=== PATIENT | male | born 1965 | race Caucasian/White ===

== ENCOUNTER 2024-05-28 12:34 | Emergency (ER) | payer OTHER, SELFPAY ==
[2024-05-28 12:38] VITALS: BP 130/107
[2024-05-28 13:45] VITALS: BMI 21.4
[2024-05-28 13:47] VITALS: BP 114/79
[2024-05-28 14:21] LABS: Hematocrit 37.5 % (39.0-52.0); Hemoglobin 13.4 g/dL (13.0-18.0); Mean Corp Hgb Conc. 35.7 g/dL (33.0-37.0); Mean Corpuscular Hgb 32.5 pg (27.0-31.0); Mean Platelet Volume 9.8 fL (7.4-10.4); Platelet Count 185 10^3/uL (130-400); Red Blood Cell Count 4.12 10^6/uL (4.70-6.10); Red Cell Dist. Width 13.9 % (11.5-14.5); White Blood Cell Count 6.4 10^3/uL (4.8-10.8)
[2024-05-28 14:28] LABS: Urine Albumin Trace (Neg - Trace); Urine Bilirubin 1+ (Negative); Urine Character Clear (Clear); Urine Color Yellow; Urine Glucose Negative (Negative); Urine Ketone Negative (Negative); Urine Leukocyte Trace (Negative); Urine Nitrite Negative (Negative); Urine Occult Blood Negative (Negative); Urine Urobilinogen 2+ (Neg - 1+)
[2024-05-28 14:30] LABS: ALT (SGPT) 35 U/L (0-50); AST (SGOT) 39 U/L (17-59); Albumin 3.9 g/dl (3.5-5.0); Alkaline Phosphatase 58 U/L (38-126); Blood Urea Nitrogen 19 mg/dl (9-20); Calcium 8.8 mg/dl (8.4-10.2); Carbon Dioxide 25 mmol/L (22-30); Chloride 100 mmol/L (98-107); Estimated Creatinine Clearance 81 ml/min; Glucose 126 mg/dl (70-99); Potassium 4.4 mmol/L (3.5-5.1); Sodium 135 mmol/L (135-145); Total Bilirubin 0.4 mg/dl (0.2-1.3); Total Protein 6.6 g/dl (6.3-8.2); eGFR > 60.00
[2024-05-28 14:32] LABS: COVID-19 Antigen Negative (Negative)
[2024-05-28] MEDS: NSS 1000 IV (14:39)
--- NOTE | 2024-05-28 15:34 | ED.GENMED ---
History of Present Illness
General
Chief Complaint: Extremity Pain (non-traumatic)
Time Seen by Provider: 05/28/24 13:14
History of Present Illness
History of Present Illness:
58-year-old male presents to the emergency department for evaluation of fatigue, trouble sleeping, generalized myalgias as well as right lower extremity cramping for the past 1 to 2 weeks. States on the day of onset of symptoms he had several bouts
of vomiting but has not vomited since. Denies any exertional claudication to the right lower extremity. 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
Denies any paresthesias to the right leg. No recent fevers or chills. Denies chest pain or trouble breathing
Past History
Past History
ED Past Medical History: Other (Past history of alcoholism and drug abuse according to previous records.) and Other (Blood clot in right leg)
ED Past Surgical History: Orthopedic and Other (Vascular surgery right leg)
Social History
Tobacco: Smoker
Alcohol: Former
Drug: None
Personal: Single
Living: with family
Employment: Employed
Review of Systems
Review of Systems
All Other Systems: ROS reviewed and negative except as documented in HPI and ROS
Phy Exam
Physical Exam
Physical Exam:
GEN: Well appearing, NAD, WDWN
Eyes: PERRLA, EOMs intact, no scleral icterus
HENT: NCAT, oral mucosa moist, no JVD, no cervical adenopathy.
Lungs: CTAB, no wheezes, rales, rhonchi, normal chest wall excursion
Cardiac: RRR, no M/R/G, no peripheral edema. Radial pulses 2+ bilat
Abdomen: S, NT, ND, NABS, no masses or hepatosplenomegaly
Neuro: AO x 3
MSK: No gross deformity or ecchymosis. No bilateral lower extremity edema. Dorsalis pedis and posterior tibialis pulses are 2+ and symmetric bilaterally, no tenderness to palpation of the right lower extremity
Skin: No rashes, petechiae. Normal color, no pallor or jaundice.
Psych: Calm, cooperative, proper hygiene
Course
Orders/Labs/Results
Orders:
Orders
05/28/24 13:59
Electrocardiogram (*1) Urgent
Reason for Study: QTc Monitoring
EKG- Treatment ONCE
05/28/24 14:00
COVID-19 Antigen Urgent
Source: Nasal Swab
Complete Blood Count/With Diff Urgent
Comprehensive Metabolic Panel Urgent
05/28/24 14:13
Urinalysis Reflex To Culture Urgent
Date Specimen was Collected: 05/28/24
Time Specimen was Collected: 14:12
Urine Microscopic Reflex Cult Urgent
05/28/24 14:36
0.9% Sodium Chloride 1000 ml [Nss] 1,000 ml IV BOLUS
Abnormal Lab Results
05/28/24 05/28/24
14:00 14:13
RBC 4.12 L 10^6/uL
(4.70-6.10)
Hct 37.5 L %
(39.0-52.0)
MCH 32.5 H pg
(27.0-31.0)
Glucose 126 H mg/dl
(70-99)
Urine Bilirubin 1+ A
(Negative)
Urine Urobilinogen 2+ A
(Neg - 1+)
Leukocyte Esterase Rfl Trace A
(Negative)
Urine RBC 3-6 A /HPF
(0-2)
05/28/24 14:00
05/28/24 14:00
Vital Signs
Initial and Last Documented VS:
Initial Vital Signs
Temp Pulse Resp BP Pulse Ox
98.0 F 116 18 130/107 95
05/28/24 12:38 05/28/24 12:38 05/28/24 12:38 05/28/24 12:38 05/28/24 12:38
Last Documented Vital Signs
Temp Pulse Resp BP Pulse Ox
98.0 F 91 17 121/82 97
05/28/24 12:38 05/28/24 15:49 05/28/24 15:49 05/28/24 15:49 05/28/24 15:15
MDM/Problems Addressed
MDM/Problems Addressed:
Because the patient's symptoms is not clear, suspect viral etiology given the initial onset of vomiting and subsequent diffuse myalgias. He does complain of right lower extremity discomfort however this is not clearly an exertional claudication
type symptoms and he has bounding DP and PT pulses on the right. No sign of limb ischemia at this time. Treated with IV fluids with improvement in symptoms, recommend primary care follow-up if symptoms continue
*Critical Care Note
Total Time (30-74mins, 75-104mins- exclusive of procedures): Not Applicable
ED Attending Note
-
Portions of this chart may have been created with voice recognition software.� Occasional wrong word or��sound alike� substitutions may have occurred due to the inherent limitations of voice recognition software.
Discharge Plan
Departure
Patient Disposition: Home (Routine Discharge)
Date of Disposition: 05/28/24
Time of Disposition: 15:34
Patient with high blood pressure during this ER visit?: No
Discharge Problem:
Myalgia
Instructions: Muscle and Bone Pain (DC)
Prescriptions:
No Action
celecoxib 200 MG capsule
200 mg PO DAILY
clopidogrel 75 MG tablet
75 mg PO DAILY
escitalopram oxalate 20 MG tablet
20 mg PO DAILY
cyclobenzaprine 10 MG tablet
5 mg PO BIDPRN PRN (Reason: muscle spasm)
oxycodone 5 MG tablet
5 mg PO Q4HPRN PRN (Reason: moderate pain) Qty: 10 0RF
acetaminophen 325 MG tablet
650 mg PO Q4HPRN PRN (Reason: mild pain or temp >/= 100.4F) 0RF
atorvastatin 10 MG tablet
10 mg PO QPM Qty: 30 1RF
cyclobenzaprine 10 MG tablet
5 mg PO TID PRN (Reason: spasm) Qty: 12 0RF
prednisone 10 MG tablet
10 mg PO .TAPER Qty: 30 0RF
Rx Instructions:
Take 40mg daily x3days, 30mg daily x3days,
20mg daily x3days, 10mg daily x3days.
tramadol 50 MG tablet
50 mg PO Q6HPRN PRN (Reason: pain) Qty: 12 0RF
Referrals:
Chadwick Villarreal MD [Family Provider] -
Interventions
Interventions:
*Risk Screen - Suicide Last Done: 05/28/24 12:38
*General Assessment Last Done: 05/28/24 12:38
ED- Fall Risk Assessment Last Done: 05/28/24 13:47
*ED COVID-19 Vaccine History Last Done: 05/28/24 12:38
*Nursing Disposition Last Done: 05/28/24 15:45
ED-Skin Assessment Last Done: 05/28/24 13:47
ED-Peripheral Vascular Assessment Last Done: 05/28/24 13:47
ED-Musculoskeletal Assessment Last Done: 05/28/24 13:47
Discharge Date and Time
Discharge Date/Time: 05/28/24 15:45
Print Language: CHINESE
[2024-05-28 15:49] VITALS: BP 121/82
[2024-05-28 16:35] LABS: % Basophils 0.3 % (0-2); % Eosinophils 1.9 % (0-6); % Immature Granulocytes 0.5 % (0-0.5); % Lymphocytes 29.8 % (20.5-51.1); % Monocytes 6.9 % (1.7-9.3); % Neutrophils 60.6 % (42.2-75.2); Absolute Eosinophils 0.1 10^3/uL (0-0.7); Absolute Lymphocytes 1.9 10^3/uL (1.2-3.4); Absolute Monocytes 0.4 10^3/uL (0.1-0.6); Absolute Neutrophils 3.9 10^3/uL (1.4-6.5); Nucleated Red Blood Cells % 0 % (-)
== END 2024-05-28 15:45 | disposition home or self-care (01) ==
LOC: EMR 12:34
PROVIDERS: Physician Assistant; EMERGENCY PHYSICIAN Emergency Medicine; FAMILY PHYSICIAN Family Medicine; REFERRING PHYSICIAN Surgery Vascular Surgery
DX: M79.10 Myalgia, unspecified site (principal); F17.200 Nicotine dependence, unspecified, uncomplicated
CPT/HCPCS: 99283; 96360; 80053; 81003; 81015; 85025; 87811; 93005

== ENCOUNTER → 2024-07-02 13:14 | Outpatient (REF) | payer OTHER, SELFPAY | LOC: DHVS 13:14 | PROVIDERS: ATTENDING PHYSICIAN Surgery Vascular Surgery | DX: I73.9 Peripheral vascular disease, unspecified (principal); I77.811 Abdominal aortic ectasia | CPT/HCPCS: 76770; 93922; 93925 ==

== ENCOUNTER 2024-11-14 12:47 | Emergency (ER) | payer OTHER, SELFPAY ==
[2024-11-14 12:50] VITALS: BP 121/81
--- NOTE | 2024-11-14 13:42 | ED.SKININJ ---
HPI-Injury
General
Chief Complaint: Skin Surface Trauma
Source: patient
Exam Limitations: none
Time Seen by Provider: 11/14/24 13:10
Nursing documentation reviewed up to this point in time: agreed with
History of Present Illness-Injury
Is this injury a work related problem?: No
Is pt an associate of [facility]?: No
Initial Injury comments:
59-year-old male forearm injury with a fishhook which is stuck he was fishing for stripers in the [place] 1 karen but he was unable to remove
Unsure of his last tetanus, occurred just prior to arrival
Past History
Past History
ED Past Medical History: Other (Past history of alcoholism and drug abuse according to previous records.) and Other (Blood clot in right leg)
ED Past Surgical History: Orthopedic and Other (Vascular surgery right leg)
Social History
Tobacco: Smoker
Alcohol: Former
Drug: None
Personal: Single
Living: with family
Employment: Employed
Phy Exam
Physical Exam
Physical Exam:
Physical Exam
General: no apparent distress, not acutely ill
Neck: No jaundice
Lungs: no acute respiratory distress.
Neuro: alert and oriented. no focal neurological deficits
Skin: no rash
Psychiatric: well kept. interactive and cooperative
Extremities: Three-pronged fishing lure 1 karen stuck in the extensor surface of the right forearm
Course
Orders/Labs/Results
Orders:
Orders
11/14/24 13:33
Wound Dressing- Treatment ONCE
Location of Wound: forearm
Treatment of Wound: wash wound thanks
Amoxicillin 875 mg/Clav 125 mg [Augmentin 875 mg/125 mg] 1 tablet PO NOW STA
Tetanus/Diphth/Acelpertussis [Adacel] 0.5 ml IM .ONCE ONE
Vital Signs
Initial and Last Documented VS:
Initial Vital Signs
Temp Pulse Resp BP Pulse Ox
97.8 F 90 16 121/81 97
11/14/24 12:50 11/14/24 12:50 11/14/24 12:50 11/14/24 12:50 11/14/24 12:50
Last Documented Vital Signs
Temp Pulse Resp BP Pulse Ox
97.8 F 90 16 121/81 97
11/14/24 12:50 11/14/24 12:50 11/14/24 12:50 11/14/24 12:50 11/14/24 12:50
Procedures
Other
Indication for procedure:: Fishing hook in the forearm
Procedure completed by: Manuel
Consent form signed: No
Additional Procedure:
Local anesthetic, direct pressure karen removed
Wound cleaned and dressed
MDM/Problems Addressed
Differential Diagnosis Includes:
Foreign body, karen in the forearm
*Critical Care Note
Total Time (30-74mins, 75-104mins- exclusive of procedures): Not Applicable
Update Note
Update Note:
Hook removed, will start on antibiotics update tetanus
ED Attending Note
-
Portions of this chart may have been created with voice recognition software.� Occasional wrong word or��sound alike� substitutions may have occurred due to the inherent limitations of voice recognition software.
Discharge Plan
Departure
Patient Disposition: Home (Routine Discharge)
Date of Disposition: 11/14/24
Time of Disposition: 13:35
Patient with high blood pressure during this ER visit?: No
Condition: Good
Discharge Problem:
fishhook injury
Instructions: Wound Care (DC)
Prescriptions:
New
amoxicillin-pot clavulanate 875-125 mg tablet
1 tab PO BID Qty: 10 0RF
No Action
celecoxib 200 MG capsule
200 mg PO DAILY
clopidogrel 75 MG tablet
75 mg PO DAILY
escitalopram oxalate 20 MG tablet
20 mg PO DAILY
cyclobenzaprine 10 MG tablet
5 mg PO BIDPRN PRN (Reason: muscle spasm)
oxycodone 5 MG tablet
5 mg PO Q4HPRN PRN (Reason: moderate pain) Qty: 10 0RF
acetaminophen 325 MG tablet
650 mg PO Q4HPRN PRN (Reason: mild pain or temp >/= 100.4F) 0RF
atorvastatin 10 MG tablet
10 mg PO QPM Qty: 30 1RF
cyclobenzaprine 10 MG tablet
5 mg PO TID PRN (Reason: spasm) Qty: 12 0RF
prednisone 10 MG tablet
10 mg PO .TAPER Qty: 30 0RF
Rx Instructions:
Take 40mg daily x3days, 30mg daily x3days,
20mg daily x3days, 10mg daily x3days.
tramadol 50 MG tablet
50 mg PO Q6HPRN PRN (Reason: pain) Qty: 12 0RF
Activity Restrictions/Additional Instructions:
Wash your wound with soap and water twice a day take antibiotics as prescribed return to the ER if any signs of infection
Interventions
Interventions:
*Risk Screen - Suicide Last Done: 11/14/24 12:50
*General Assessment Last Done: 11/14/24 12:50
*Neglect/Abuse Screening Last Done: 11/14/24 12:50
*ED- Fall Risk Assessment Last Done: 11/14/24 13:06
*ED COVID-19 Vaccine History Last Done: 11/14/24 12:50
ED-Skin Assessment Last Done: 11/14/24 13:06
Discharge Date and Time
Print Language: SLOVENIAN
[2024-11-14] MEDS: AUGMENTIN 875 MG/125 MG 1 TABLET PO (13:52)
[2024-11-14] MEDS: ADACEL 0.5 ML IM (13:53)
== END 2024-11-14 14:02 | disposition home or self-care (01) ==
LOC: EMR 12:47
PROVIDERS: EMERGENCY PHYSICIAN Emergency Medicine
DX: S50.851A Superficial foreign body of right forearm, initial encounter (principal); W26.8XXA Contact with other sharp object(s), not elsewhere classified, initial encounter; F17.200 Nicotine dependence, unspecified, uncomplicated; Z23 Encounter for immunization
CPT/HCPCS: 90471; 99283; 90715

== ENCOUNTER 2024-12-30 14:17 | Emergency (ER) | payer OTHER, SELFPAY ==
[2024-12-30 14:21] VITALS: BP 170/81
[2024-12-30 15:05] LABS: % Eosinophils 1.9 % (0-6); % Immature Granulocytes 0.3 % (0-0.5); % Lymphocytes 31.3 % (20.5-51.1); % Neutrophils 54.5 % (42.2-75.2); Absolute Basophils 0.1 10^3/uL (0-0.2); Absolute Eosinophils 0.1 10^3/uL (0-0.7); Absolute Lymphocytes 1.9 10^3/uL (1.2-3.4); Absolute Monocytes 0.7 10^3/uL (0.1-0.6); Absolute Neutrophils 3.4 10^3/uL (1.4-6.5); Hematocrit 37.3 % (39.0-52.0); Hemoglobin 12.8 g/dL (13.0-18.0); Mean Corp Hgb Conc. 34.3 g/dL (33.0-37.0); Mean Corpuscular Hgb 32.2 pg (27.0-31.0); Mean Corpuscular Volume 93.7 fL (80.0-94.0); Mean Platelet Volume 9.4 fL (7.4-10.4); Nucleated Red Blood Cells % 0 % (-); Platelet Count 211 10^3/uL (130-400); Red Blood Cell Count 3.98 10^6/uL (4.70-6.10); Red Cell Dist. Width 13.7 % (11.5-14.5); White Blood Cell Count 6.2 10^3/uL (4.8-10.8)
[2024-12-30] MEDS: TORADOL 15 MG IV (15:15)
[2024-12-30 15:20] VITALS: BMI 21.8
[2024-12-30 15:24] LABS: ALT (SGPT) 21 U/L (0-50); AST (SGOT) 29 U/L (17-59); Albumin 4.4 g/dl (3.5-5.0); Alkaline Phosphatase 62 U/L (38-126); Blood Urea Nitrogen 15 mg/dl (9-20); Calcium 9.3 mg/dl (8.4-10.2); Carbon Dioxide 25 mmol/L (22-30); Chloride 110 mmol/L (98-107); Estimated Creatinine Clearance 92 ml/min; Glucose 94 mg/dl (70-99); Potassium 4.6 mmol/L (3.5-5.1); Sodium 139 mmol/L (135-145); Total Bilirubin 0.4 mg/dl (0.2-1.3); Total Protein 6.5 g/dl (6.3-8.2); eGFR > 60.00
[2024-12-30 15:25] LABS: Lipase 210 U/L (23-300)
[2024-12-30 15:35] LABS: Troponin I < 0.012 ng/ml
[2024-12-30 15:43] LABS: D-Dimer 0.56 ug/mlFEU (0.00-0.50)
[2024-12-30] MEDS: MORPHINE SULFATE 4 MG IV (16:58)
[2024-12-30 17:21] VITALS: BP 126/95
[2024-12-30 18:00] VITALS: BP 150/97
--- NOTE | 2024-12-30 18:02 | ED.GENMED ---
History of Present Illness
General
Chief Complaint: Chest Pain
Time Seen by Provider: 12/30/24 14:33
History of Present Illness
History of Present Illness:
59-year-old male presents the emergency department for evaluation of nontraumatic left-sided chest pain that has been present for the past 4 days. Reports it is worse with deep breathing or with any movement. No associated shortness of breath,
coughing, URI symptoms, fever, chills, or sweats. Has never felt pain like this before. Denies any prior exertion that would have provoked this. No leg swelling or calf cramping.
Past History
Past History
ED Past Medical History: Other (Past history of alcoholism and drug abuse according to previous records.) and Other (Blood clot in right leg)
ED Past Surgical History: Orthopedic and Other (Vascular surgery right leg)
Social History
Tobacco: Smoker
Alcohol: Former
Drug: None
Personal: Single
Living: with family
Employment: Employed
Review of Systems
Review of Systems
Allergies reviewed?: Yes
All Other Systems: ROS reviewed and negative except as documented in HPI and ROS
Phy Exam
Physical Exam
Physical Exam:
GEN: Well appearing, NAD, WDWN
HEENT: Oral mucosa moist, no scleral icterus
Cardiac: Regular rate and rhythm, no murmurs
Lung: No respiratory distress, no tachypnea, lungs clear to auscultation bilaterally
Chest: Reproducible tenderness to the lateral pectoral region of the chest on the left with no palpable deformities
MSK: No gross deformity or injuries
Skin: Good color, no pallor or jaundice, no rashes
Neuro: AO x3, moves all extremities freely
Psych: Calm, cooperative
Scores
Heart Score for Chest Pain Patients
STEMI patient?: No
History: Slightly or Non-Suspicious
ECG: Normal
Age: >45 - <65 years
Risk Factors: >/= 3 Risk Factors or History of CAD
Troponin: </= Normal Limit
Heart Score for Chest Pain Patients: 3
Heart Score Risk: 2.5% MACE over next 6 weeks
Course
Orders/Labs/Results
Orders:
Orders
12/30/24 14:17
EKG [Electrocardiogram (*1)] Urgent
Reason for Study: Chest Pain
12/30/24 14:18
EKG- Treatment ONCE
12/30/24 14:22
Ribs, Left 3 View W/PA Chest CR [CR Ribs-left 3 Vw W/pa Chest] Urgent
Comment:
Reason For Exam: left sided chest pain
12/30/24 14:53
Complete Blood Count/With Diff Urgent
Comprehensive Metabolic Panel Urgent
Lipase Urgent
Troponin I Urgent
12/30/24 15:08
Ketorolac [Toradol] 15 mg IV NOW STA
12/30/24 15:18
D-Dimer Urgent
12/30/24 16:41
Morphine Sulfate 4 mg IV NOW STA
12/30/24 18:01
Dexamethasone Sod Phosphate [Decadron] 6 mg IV NOW STA
HYDROmorphone [Dilaudid] 0.5 mg IV NOW STA
Abnormal Lab Results
12/30/24 12/30/24
14:53 15:18
RBC 3.98 L 10^6/uL
(4.70-6.10)
Hgb 12.8 L g/dL
(13.0-18.0)
Hct 37.3 L %
(39.0-52.0)
MCH 32.2 H pg
(27.0-31.0)
Absolute Monos (auto) 0.7 H 10^3/uL
(0.1-0.6)
Monocytes % 11.0 H %
(1.7-9.3)
D-Dimer 0.56 H ug/mlFEU
(0.00-0.50)
Chloride 110 H mmol/L
(98-107)
12/30/24 14:53
12/30/24 14:53
Vital Signs
Initial and Last Documented VS:
Initial Vital Signs
Temp Pulse Resp BP Pulse Ox
98.4 F 93 16 170/81 98
12/30/24 14:21 12/30/24 14:21 12/30/24 14:21 12/30/24 14:21 12/30/24 14:21
Last Documented Vital Signs
Temp Pulse Resp BP Pulse Ox
98.4 F 69 18 150/97 98
12/30/24 14:21 12/30/24 18:15 12/30/24 18:15 12/30/24 18:00 12/30/24 18:02
MDM/Problems Addressed
MDM/Problems Addressed:
Patient's pain is clearly reproducible and worse with movement of the chest, he has symmetric radial pulses which is reassuring against thoracic aortic dissection. Cardiac workup is unremarkable, D-dimer minimally elevated but meets adjusted for
age D-dimer cutoff is to rule out PE. Low clinical suspicion for thoracic aortic dissection or aneurysm given the duration of the symptoms and reproducibility of his pain. Will trial a course of corticosteroids if this is radicular in nature from
his thoracic spine given known severe spine deformities. Suitable for discharge home at this point, ED return parameters discussed
*Pulse Oximetry
SaO2: 98
Oxygen Mode of Delivery: Room air
*Critical Care Note
Total Time (30-74mins, 75-104mins- exclusive of procedures): Not Applicable
ED Attending Note
-
Portions of this chart may have been created with voice recognition software.� Occasional wrong word or��sound alike� substitutions may have occurred due to the inherent limitations of voice recognition software.
Discharge Plan
Departure
Patient Disposition: Home (Routine Discharge)
Date of Disposition: 12/30/24
Time of Disposition: 18:02
Patient with high blood pressure during this ER visit?: No
Discharge Problem:
Left-sided chest wall pain
Instructions: Chest Pain That Is Not Caused by the Heart (DC)
Prescriptions:
New
methylprednisolone [Medrol (Reyes)] 4 mg tablets,dose pack
See Rx Instructions .ROUTE .COMPLEX Qty: 21 0RF
Rx Instructions:
orally per package directions
oxycodone-acetaminophen [Percocet] 5-325 mg tablet
1 tab PO Q6HPRN PRN (Reason: pain) Qty: 8 0RF
No Action
celecoxib 200 MG capsule
200 mg PO DAILY
clopidogrel 75 MG tablet
75 mg PO DAILY
escitalopram oxalate 20 MG tablet
20 mg PO DAILY
cyclobenzaprine 10 MG tablet
5 mg PO BIDPRN PRN (Reason: muscle spasm)
oxycodone 5 MG tablet
5 mg PO Q4HPRN PRN (Reason: moderate pain) Qty: 10 0RF
acetaminophen 325 MG tablet
650 mg PO Q4HPRN PRN (Reason: mild pain or temp >/= 100.4F) 0RF
atorvastatin 10 MG tablet
10 mg PO QPM Qty: 30 1RF
cyclobenzaprine 10 MG tablet
5 mg PO TID PRN (Reason: spasm) Qty: 12 0RF
prednisone 10 MG tablet
10 mg PO .TAPER Qty: 30 0RF
Rx Instructions:
Take 40mg daily x3days, 30mg daily x3days,
20mg daily x3days, 10mg daily x3days.
tramadol 50 MG tablet
50 mg PO Q6HPRN PRN (Reason: pain) Qty: 12 0RF
amoxicillin-pot clavulanate 875-125 mg tablet
1 tab PO BID Qty: 10 0RF
Referrals:
Rashawn Hameed MD [Family Provider]
Interventions
Interventions:
*Risk Screen - Suicide Last Done: 12/30/24 14:21
*General Assessment Last Done: 12/30/24 14:21
*Neglect/Abuse Screening Last Done: 12/30/24 14:21
*ED- Fall Risk Assessment Last Done: 12/30/24 14:21
*ED COVID-19 Vaccine History Last Done: 12/30/24 14:21
*Nursing Disposition Last Done: 12/30/24 18:38
ED- Cardiac Assessment Last Done: 12/30/24 15:20
Discharge Date and Time
Discharge Date/Time: 12/30/24 18:38
Print Language: [place] CITIZ[place]
[2024-12-30] MEDS: DILAUDID 0.5 MG IV (18:08)
[2024-12-30] MEDS: DECADRON 6 MG IV (18:09)
== END 2024-12-30 18:38 | disposition home or self-care (01) ==
LOC: EMR 14:17
PROVIDERS: Physician Assistant; EMERGENCY PHYSICIAN Emergency Medicine; FAMILY PHYSICIAN Family Medicine
DX: R07.89 Other chest pain (principal); F17.200 Nicotine dependence, unspecified, uncomplicated; I25.10 Atherosclerotic heart disease of native coronary artery without angina pectoris
CPT/HCPCS: 99283; 96374; 96375; 71101; 80053; 83690; 84484; 85025; 85379; 93005

== ENCOUNTER 2025-02-08 10:06 | Emergency (ER) | payer OTHER, SELFPAY ==
[2025-02-08 10:08] VITALS: BP 144/102
--- NOTE | 2025-02-08 11:23 | ED.GENMED ---
History of Present Illness
General
Chief Complaint: Musculo-Skeletal Complaint
Source: patient
Exam Limitations: none
Time Seen by Provider: 02/08/25 11:10
Nursing documentation reviewed up to this point in time: agreed with
History of Present Illness
History of Present Illness:
Patient is a 59-year-old male who presents the emergency department for evaluation of left hip pain after mechanical fall earlier today. Patient states he was stepping over a toad that was in his driveway today on the steps when he lost his footing
and fell landing with his left hip on the curb. He thinks he may have heard a 'pop'. He denies any head strike or loss of consciousness. He feels that he may have twisted his left ankle.
Fortunately�patient was able to get up on his own and has been ambulatory although with some discomfort since. He did initially head out on his fishing trip however returned prematurely given worsening pain in his left hip
Patient reports pain is intensified with weightbearing. He denies any numbness/tingling in left lower extremity. He denies any headache, neck pain, back pain. He denies any tenderness in his ankle or knee.
Patient does take Plavix.
Past History
Past History
ED Past Medical History: Other (Past history of alcoholism and drug abuse according to previous records.) and Other (Blood clot in right leg)
ED Past Surgical History: Orthopedic and Other (Vascular surgery right leg)
Social History
Tobacco: Smoker
Alcohol: Former
Drug: None
Personal: Single
Living: with family
Employment: Employed
Review of Systems
Review of Systems
Allergies reviewed?: Yes
All Other Systems: ROS reviewed and negative except as documented in HPI and ROS
Phy Exam
Physical Exam
Physical Exam:
Vitals: Hypertensive, otherwise vital signs stable. Afebrile
General: Patient is well appearing, no acute distress
Skin: Warm and dry, no rashes or lesions
Head: Normocephalic, atraumatic
Throat: Protecting airway
Neck: Normal ROM, no cervical spine tenderness
Cardiac: Regular rate
Pulm: No apparent respiratory distress
Abdomen: Nondistended
Extremities: Tenderness of left hip/ buttock region with small hematoma. No inguinal tenderness. Some pain with internal rotation of left hip. Full ability to externally rotate and abduct/adduct hip. No areas of ecchymosis, edema or bony tenderness
of left foot or ankle. Achilles intact. 2+ palpable DP and PT pulses w/ normal sensation.
Neuro: Grossly intact
Psychiatric: Normal affect.
Course
Orders/Labs/Results
Orders:
Orders
02/08/25 11:22
Acetaminophen [Tylenol] 650 mg PO NOW STA
Hip, Left 2-3 Views [CR Hip - LT w/wo Pel 2-3 Vw*] Urgent
Comment:
Reason For Exam: fall, left hip pain
Include a pelvis x-ray?: Yes
Vital Signs
Initial and Last Documented VS:
Initial Vital Signs
Temp Pulse Resp BP Pulse Ox
98 F 84 16 144/102 97
02/08/25 10:08 02/08/25 10:08 02/08/25 10:08 02/08/25 10:08 02/08/25 10:08
Last Documented Vital Signs
Temp Pulse Resp BP Pulse Ox
98 F 84 16 144/102 97
02/08/25 10:08 02/08/25 10:08 02/08/25 10:08 02/08/25 10:08 02/08/25 11:23
MDM/Problems Addressed
Differential Diagnosis Includes:
Not limited to: Hip strain, hip contusion, hematoma, hip fracture, pubic rami fracture, hip dislocation, etc.
MDM/Problems Addressed:
59 year old male presenting with left hip pain following mechanical fall earlier today. He is able to ambulate although with discomfort. No head strike or other associated injuries. Hypertensive, otherwise vital signs stable. Exam as above.
Reproducible tenderness and small hematoma noted to left lateral buttock/hip region. No bony tenderness of lower leg, ankle or foot. Differential includes hip contusion, hematoma, muscular strain/tear, hip frature, etc. ED plan: xray left hip.
Patient declines xray of left ankle. No indication for head imaging. Will continue to apply ice, give tylenol and reasess.
Update: hip xray without acute fracture. On reassessment - no evidence of expanding hematoma. Discussed CT scan to ensure no occult fracture vs supportive care at home/ ortho f/u. Patient did get up and walking. He is able to bear weight and has
walked down the [place] a few times. He states pain improved the more he ambualtes. Overall - low suspicion for fracture. Shared decision making utilized - will hold off on CT scan at this time. Advised rest, ice, tylenol for pain as well as ortho f/u.
Strict return precautions discussed. Patient comfortable with plan.
Chronic conditions affecting care:
PAD on Plavix
Acute Exacerbation and/or Progression of Chronic Illness:
N/A
*Radiology
Radiology exam reviewed: preliminary read by ED provider (Left hip x-ray reviewed by me-no acute fracture or abnormality) and radiology read reviewed
*Pulse Oximetry
SaO2: 97
Oxygen Mode of Delivery: Room air
Patient hypoxic: no
*EKG
Interpreted by ED Provider?: NA
*Coc[employer] Milling Machine Operator Interpretation
Rate: Coc[employer] Milling Machine Operator- N/A
*Critical Care Note
Total Time (30-74mins, 75-104mins- exclusive of procedures): Not Applicable
ED Attending Note
-
Portions of this chart may have been created with voice recognition software.� Occasional wrong word or��sound alike� substitutions may have occurred due to the inherent limitations of voice recognition software.
Discharge Plan
Departure
Patient Disposition: Home (Routine Discharge)
Date of Disposition: 02/08/25
Time of Disposition: 13:17
Patient with high blood pressure during this ER visit?: Yes
Discharge Problem:
Hip pain, left, Fall
Instructions: Contusion (DC), BLOOD PRESSURE
Prescriptions:
No Action
celecoxib 200 MG capsule
200 mg PO DAILY
clopidogrel 75 MG tablet
75 mg PO DAILY
escitalopram oxalate 20 MG tablet
20 mg PO DAILY
cyclobenzaprine 10 MG tablet
5 mg PO BIDPRN PRN (Reason: muscle spasm)
oxycodone 5 MG tablet
5 mg PO Q4HPRN PRN (Reason: moderate pain) Qty: 10 0RF
acetaminophen 325 MG tablet
650 mg PO Q4HPRN PRN (Reason: mild pain or temp >/= 100.4F) 0RF
atorvastatin 10 MG tablet
10 mg PO QPM Qty: 30 1RF
cyclobenzaprine 10 MG tablet
5 mg PO TID PRN (Reason: spasm) Qty: 12 0RF
prednisone 10 MG tablet
10 mg PO .TAPER Qty: 30 0RF
Rx Instructions:
Take 40mg daily x3days, 30mg daily x3days,
20mg daily x3days, 10mg daily x3days.
tramadol 50 MG tablet
50 mg PO Q6HPRN PRN (Reason: pain) Qty: 12 0RF
amoxicillin-pot clavulanate 875-125 mg tablet
1 tab PO BID Qty: 10 0RF
methylprednisolone [Medrol (Reyes)] 4 mg tablets,dose pack
See Rx Instructions .ROUTE .COMPLEX Qty: 21 0RF
Rx Instructions:
orally per package directions
oxycodone-acetaminophen [Percocet] 5-325 mg tablet
1 tab PO Q6HPRN PRN (Reason: pain) Qty: 8 0RF
Referrals:
Chadwick Villarreal MD [Family Provider, Family Practice]
William Araiza MD [Active, Orthopedics] - Follow up in 1 week
Activity Restrictions/Additional Instructions:
RETURN TO THE EMERGENCY DEPARTMENT WITH ANY INTRACTABLE PAIN, INABILITY TO AMBULATE, NUMBNESS/TINGLING IN LEFT LOWER EXTREMITY, SIGNIFICANT INCREASE IN SWELLING, WORSENING CURRENT SYMPTOMS, OR ANY OTHER CONCERNS
- As discussed�your x-ray showed no evidence of fracture. You may have sustained a muscular injury or contusion to your left hip.
- Please continue to ice your left hip. Take Tylenol as needed for pain. Weight-bear as tolerated
- Follow-up with orthopedics for further evaluation/management to ensure that your symptoms are proving. You may require further imaging.
Monitor your symptoms closely and return urgency department with any acute worsening/new symptoms or any other concerns
Interventions
Interventions:
*Risk Screen - Suicide Last Done: 02/08/25 10:07
*General Assessment Last Done: 02/08/25 11:37
*Neglect/Abuse Screening Last Done: 02/08/25 10:07
*ED- Fall Risk Assessment Last Done: 02/08/25 11:37
*ED COVID-19 Vaccine History Last Done: 02/08/25 11:37
*Nursing Disposition Last Done: 02/08/25 13:31
ED-Musculoskeletal Assessment Last Done: 02/08/25 13:10
Discharge Date and Time
Discharge Date/Time: 02/08/25 13:32
Print Language: NICARAGU[place]
[2025-02-08] MEDS: TYLENOL 650 MG PO (11:35)
== END 2025-02-08 13:32 | disposition home or self-care (01) ==
LOC: EMR 10:06
PROVIDERS: EMERGENCY PHYSICIAN Emergency Medicine; FAMILY PHYSICIAN Family Medicine
DX: M25.552 Pain in left hip (principal); W18.39XA Other fall on same level, initial encounter; F17.200 Nicotine dependence, unspecified, uncomplicated; I73.9 Peripheral vascular disease, unspecified; Z79.02 Long term (current) use of antithrombotics/antiplatelets
CPT/HCPCS: 99283; 73502